=== PATIENT | female | born 1965 | race Caucasian/White ===

== ENCOUNTER 2016-09-20 17:05 | Emergency (ER) | payer MEDICAID ==
[~2016-09-20] VITALS: Ht 162.6 cm; Wt 72.6 kg
[2016-09-20 17:46] VITALS: BP 167/72
[2016-09-20] MEDS ORDERED: SULF1TAB24 PO (17:51)
[2016-09-20] MEDS ORDERED: HYDR-971 PO (17:51)
--- NOTE | 2016-09-20 17:51 | PHYS DOC ---
Adult General Chief Complaint Chief Complaint: INSECT BITE HPI HPI Patient is a 51 year old female presents emergency Department with complaint of a dime-sized swollen, reddened lesion to the right side of her abdominal wall that is been progressive over the past 3 days. Patient denies any skin injury. Patient suspects that she may have been bitten by a spider. However, she has not actually seen a spider bite her. Patient denies any history of recurrent skin infections. She denies antibiotic use within the past 90 days. She denies any fevers or chills. She denies myalgias and arthralgias. Review of Systems Review of Systems Constitutional: Denies fever or chills [] Eyes: Denies change in visual acuity, redness, or eye pain [] HENT: Denies nasal congestion or sore throat [] Respiratory: Denies cough or shortness of breath [] Cardiovascular: No additional information not addressed in HPI [] GI: Denies abdominal pain, nausea, vomiting, bloody stools or diarrhea [] : Denies dysuria or hematuria [] Musculoskeletal: Denies back pain or joint pain [] Integument: Denies rash or skin lesions [] Neurologic: Denies headache, focal weakness or sensory changes [] Endocrine: Denies polyuria or polydipsia [] Current Medications Current Medications Current Medications Medications (Trade) Dose Ordered Sig/Too Start Time Stop Time Status Last Admin Dose Admin Lidocaine/Sodium Bicarbonate (Buffered Lidocaine 1%) 20 ml 1X ONCE 09/20/16 18:00 09/20/16 18:01 DC 09/20/16 17:53 20 ML Allergies Allergies Allergies Coded Allergies Type Severity Reaction Last Updated Verified No Known Drug Allergies 09/20/16 No Physical Exam Physical Exam Constitutional: Well developed, well nourished, no acute distress, non-toxic appearance. [] HENT: Normocephalic, atraumatic, bilateral external ears normal, oropharynx moist, no oral exudates, nose normal. [] Eyes: PERRLA, EOMI, conjunctiva normal, no discharge. [] Neck: Normal range of motion, no tenderness, supple, no stridor. [] Cardiovascular:Heart rate regular rhythm, no murmur [] Lungs & Thorax: Bilateral breath sounds clear to auscultation [] Abdomen: Bowel sounds normal, soft, no tenderness, no masses, no pulsatile masses. [] Skin: 2.5 cm, raised, erythematous, fluctuant abscess to the right upper quadrant abdominal wall. There are no palpable sinus tracts or follicular eruptions surrounding the abscess. Back: No tenderness, no CVA tenderness. [] Extremities: No tenderness, no cyanosis, no clubbing, ROM intact, no edema. [] Neurologic: Alert and oriented X 3, normal motor function, normal sensory function, no focal deficits noted. [] Psychologic: Affect normal, judgement normal, mood normal. [] Current Patient Data Vital Signs Vital Signs Date Time Temp Pulse Resp B/P Pulse Ox O2 Delivery O2 Flow Rate FiO2 09/20/16 17:46 97.7 114 16 96 Room Air 97.7 EKG EKG [] Radiology/Procedures Radiology/Procedures Procedure note: Abscess site was anesthetized with buffered 1% lidocaine. Abscess site was prepped with Betadine solution. The abscess was incised with blade scalpel. There was immediate expression of a moderate amount of purulent drainage. Wound was probed for loculations. No loculations are found. Abscess was packed with quarter-inch iodoform packing. Wound was dressed and bandaged. Patient tolerated the procedure well. Course & Med Decision Making Course & Med Decision Making Pertinent Labs and Imaging studies reviewed. (See chart for details) [] Dragon Disclaimer Dragon Disclaimer This electronic medical record was generated, in whole or in part, using a voice recognition dictation system. Departure Departure Impression: Primary Impression: Cutaneous abscess of abdominal wall Disposition: 01 HOME, SELF-CARE Condition: IMPROVED Patient Instructions: Abscess, Care After, Abscess, [id number] Additional Instructions: 1. Take the medications prescribed. 2. Review the discharge instructions for self-care and reasons to return to the emergency department. Pull the packing material out in 2 days while you're in the shower. 3. You need to follow-up with a medical provider for evaluation of your abscess , particularly if you believe it's worsening. Use the pamphlet provided for assistance in finding a primary care doctor to address your medical concerns and provide wound care follow-up. Scripts Hydrocodone/Apap 5-325 (Adrian 5-325 Tablet)1 Each Tablet1 Tab PO PRN Q6HRS PRN PAIN #15 TAB Prov:JESSENIA LAYNE 09/20/16 Sulfamethoxazole/Trimethoprim (Bactrim Ds Tablet)1 Each Tablet1 Each PO BID abscess #20 TAB Prov:JESSENIA LAYNE 09/20/16 JESSENIA LAYNE Sep 20, 2016 17:51
[2016-09-20] MEDS ORDERED: LIDOCAINE 1% / SOD BICARB 8.4% 20 ML VIAL. IJ ONE (18:00)
== END 2016-09-20 18:21 | disposition home or self-care (01) ==
LOC: ER 17:05
DX: L02.211 Cutaneous abscess of abdominal wall (principal)
CPT/HCPCS: 10060; 99283-25